=== PATIENT | female | born 1980 | race Asian ===

== ENCOUNTER → 2017-05-31 | Outpatient (CLI) | payer BC ==
[~2017-05-31] MED LIST: BENADRYL25 MG PO; EFFEXOR XR37.5 MG PO; LEXAPRO 10 MG T10 M2 PO; NO HOME MEDS; TRAMADOL 50 MG50 MG PO; TRAZODONE HCL50 MG PO; VITAMIN D 5050000 I1 PO; VITAMIN D10000 UNIT PO
[2017-05-31 08:30] VITALS: BP 102/66
[2017-05-31 08:58] VITALS: BP 102/66
[2017-05-31 09:30] VITALS: BP 106/74
== END ==
LOC: OPONC 00:33
DX: D50.8 Other iron deficiency anemias (principal)
CPT/HCPCS: 95000

== ENCOUNTER → 2017-06-14 | Outpatient (CLI) | payer BC ==
[2017-06-14 09:15] VITALS: BP 112/76
[2017-06-14 10:38] VITALS: BP 99/69
== END ==
LOC: OPONC 01:36
DX: D50.8 Other iron deficiency anemias (principal)
CPT/HCPCS: 95000

== ENCOUNTER → 2017-06-28 | Outpatient (CLI) | payer BC ==
[2017-06-28 11:35] VITALS: BP 111/66
[2017-06-28 12:30] VITALS: BP 96/57
== END ==
LOC: OPONC 01:48
DX: D50.8 Other iron deficiency anemias (principal)
CPT/HCPCS: 95000

== ENCOUNTER → 2017-07-05 | Outpatient (CLI) | payer BC ==
[2017-07-05 11:00] VITALS: BP 130/46
[2017-07-05 12:25] VITALS: BP 102/60
== END ==
LOC: OPONC 02:29
DX: D50.8 Other iron deficiency anemias (principal)
CPT/HCPCS: 95000

== ENCOUNTER → 2017-08-16 | Outpatient (CLI) | payer BC ==
[2017-08-16 09:16] VITALS: BP 98/67
[2017-08-16 10:45] VITALS: BP 101/65
== END ==
LOC: OPONC 07:45
DX: D50.8 Other iron deficiency anemias (principal)
CPT/HCPCS: 95000

== ENCOUNTER → 2017-10-31 | Outpatient (CLI) | payer BC ==
[2017-10-31 14:15] VITALS: BP 101/56
[2017-10-31 15:25] VITALS: BP 127/72
== END ==
LOC: OPONC 10:49
DX: D50.9 Iron deficiency anemia, unspecified (principal)
CPT/HCPCS: 95000